=== PATIENT | female | born 1995 | race Two or more races ===

== ENCOUNTER 2024-07-12 08:44 | Inpatient (IN) | payer MEDICAID ==
[~2024-07-12] VITALS: Ht 162.6 cm; Wt 77.6 kg
[2024-07-12 09:37] LABS: PH,URINE DRUG SCREEN 6.5 (5.0-8.0)
[2024-07-12 09:44] LABS: BASOPHILS % (AUTO) 0.7 % (0.0-2.0); HEMATOCRIT 37.9 % (36-46); HEMOGLOBIN 12.9 g/dL (12.0-16.0); LYMPHOCYTES # (AUTO) 2.9 K/uL (1.0-4.8); LYMPHOCYTES % (AUTO) 72.6 % (22.0-44.0); MEAN CORPUSCULAR HEMOGLOBIN 34.5 pg (26.0-34.0); MEAN CORPUSCULAR HGB CONC 34.1 G/dL (31.0-37.0); MEAN CORPUSCULAR VOLUME 101 fL (80-100); MONOCYTES # (AUTO) 0.3 K/uL (0.1-1.0); MONOCYTES % (AUTO) 7.2 % (2.0-9.0); NEUTROPHILS # (AUTO) 0.8 K/uL (1.8-7.7); NEUTROPHILS % (AUTO) 18.5 % (40.0-70.0); PLATELET COUNT (AUTO) 191 K/uL (150-450); RED BLOOD CELL COUNT(AUTO) 3.75 MIL/uL (4.00-5.20); RED CELL DISTRIBUTION WIDTH 14.1 % (11.5-14.5); WHITE BLOOD COUNT (AUTO) 4.1 K/uL (4.5-11.0)
[2024-07-12 09:44] LABS: AMPHET/METH SCREEN,URINE NEGATIVE (NEGATIVE); BARBITURATE SCREEN, URINE NEGATIVE (NEGATIVE); BENZODIAZEPINES SCREEN,URINE POSITIVE (NEGATIVE); CANNABINOID SCREEN,URINE POSITIVE (NEGATIVE); COCAINE SCREEN,URINE NEGATIVE (NEGATIVE); METHADONE SCREEN, URINE NEGATIVE (NEGATIVE); OPIATE SCREEN,URINE NEGATIVE (NEGATIVE); PHENCYCLIDINE SCREEN,URINE NEGATIVE (NEGATIVE)
[2024-07-12 09:49] LABS: ALCOHOL, URINE DRUG SCREEN POSITIVE (NEGATIVE)
[2024-07-12 09:52] LABS: ANION GAP 18 mmol/L (8-16); CALCIUM, TOTAL 8.6 mg/dL (8.8-10.5); CARBON DIOXIDE 28 mmol/L (22-29); CHLORIDE 96 mmol/L (98-107); CREATININE 0.81 mg/dL (0.60-1.30); GLOMERULAR FILTR. RATE CALC > 60 mL/min (>60); GLUCOSE,RANDOM 87 mg/dL (70-110); POTASSIUM 3.5 mmol/L (3.5-5.1); SODIUM SERUM 141 mmol/L (136-145); UREA NITROGEN, BLOOD 6 mg/dL (7-18)
[2024-07-12 10:04] LABS: ALCOHOL, BLOOD (SERUM) 258 mg/dL (0-10)
[2024-07-12 10:15] LABS: RBC MORPHOLOGY COMMENT ABNORMAL RBC MORPH
[2024-07-12] MEDS: ONDANSETRON HCL 4 MG TABLET PO ONE (13:17)
[2024-07-12 13:37] LABS: COVID AG,FIA SOURCE NASAL SWAB
[2024-07-12 13:54] LABS: SARS-COV2 (COVID) ANTIGEN,FIA Negative (Negative)
[2024-07-12 15:47] VITALS: BP 136/74; PULSE 84; RESP 18; TEMP 98.2; O2SAT 98
[2024-07-12] MEDS ORDERED: MAGNESIUM HYDROXIDE SUSPENSION 30 ML UDCUP PO PRN (17:45)
[2024-07-12] MEDS ORDERED: ACETAMINOPHEN 325 MG TABLET PO PRN (17:45)
[2024-07-12] MEDS ORDERED: MAG HYDROX/ALUMINUM HYD/SIMETH ES 30 ML SUSPENSION UDCUP PO PRN (17:45)
[2024-07-12] MEDS ORDERED: BENZOCAINE/MENTHOL LOZENGE PO PRN (17:45)
[2024-07-12] MEDS ORDERED: ONDANSETRON HCL 4 MG TABLET PO PRN (17:45)
[2024-07-12] MEDS ORDERED: IBUPROFEN 600 MG TABLET PO PRN (17:45)
[2024-07-12] MEDS ORDERED: CloNIDine HCL 0.1 MG TABLET PO PRN (17:45)
[2024-07-12] MEDS ORDERED: DOCUSATE SODIUM 100 MG CAPSULE PO PRN (17:45)
[2024-07-12] MEDS ORDERED: OMEPRAZOLE 20 MG CAPSULE PO PRN (17:45)
[2024-07-12] MEDS ORDERED: LOPERAMIDE HCL 2 MG CAPSULE PO PRN (17:45)
[2024-07-12] MEDS ORDERED: ALBUTEROL SULFATE HFA 90 MCG/PUFF 8 GM INHALER IH PRN (17:45)
[2024-07-12] MEDS ORDERED: BACITRACIN 28 GM OINTMENT TP PRN (17:45)
[2024-07-12] MEDS ORDERED: PETROLATUM,WHITE 28 GM JELLY TP PRN (17:45)
[2024-07-12 20:38] VITALS: BP 136/80; PULSE 100; RESP 19; TEMP 97.4; O2SAT 98
[2024-07-12] MEDS: LORazepam 2 MG TABLET PO PRN (20:54)
[2024-07-12] MEDS: ZOLPIDEM TARTRATE 10 MG TABLET PO PRN (20:54)
[2024-07-13] MEDS ORDERED: GABAPENTIN 400 MG CAPSULE PO SCH (09:00)
[2024-07-13] MEDS ORDERED: GABAPENTIN 300 MG CAPSULE PO SCH (09:01)
[2024-07-13] MEDS: FLUoxetine HCL 20 MG CAPSULE PO SCH (09:04)
[2024-07-13] MEDS: GABAPENTIN 300 MG CAPSULE PO SCH (09:04)
[2024-07-13 09:10] VITALS: BP 132/80; PULSE 81; RESP 18; TEMP 98.2; O2SAT 98
[2024-07-13 12:13] LABS: APPEARANCE,URINE CLEAR (CLEAR); COLOR,URINE YELLOW (YELLOW); GLUCOSE, URINE (UA) NEGATIVE (NEGATIVE); KETONES,URINE =>150 mg/dL (NEGATIVE); LEUKOCYTE ESTERASE ,URINE LARGE (NEGATIVE); NITRATE,URINE NEGATIVE (NEGATIVE); OCCULT BLOOD,URINE NEGATIVE (NEGATIVE); PROTEIN,URINE TRACE mg/dL (NEGATIVE); SPECIFIC GRAVITIY, URINE 1.018 (1.003-1.030)
[2024-07-13 12:22] LABS: BILIRUBIN,URINE SMALL (NEGATIVE)
[2024-07-13 13:09] LABS: RBC,URINE 0-2 /HPF (0-2)
[2024-07-13 13:10] LABS: BACTERIA,URINE Moderate /HPF (None Seen); SQUAMOUS EPITHELIAL CELL,UR Moderate /LPF (None Seen)
[2024-07-13] MEDS: NITROFURANTOIN MONOHYD/M-CRYST 100 MG CAPSULE [MACROBID] PO SCH (17:19)
[2024-07-13] MEDS: HALOPERIDOL 5 MG TABLET PO PRN (21:07)
[2024-07-13 21:31] VITALS: BP 130/90; PULSE 89; RESP 18; TEMP 98.1; O2SAT 98
[2024-07-14 10:07] VITALS: BP 125/86; PULSE 79; RESP 18; TEMP 97.9; O2SAT 98
[2024-07-14 21:48] VITALS: BP 151/102; PULSE 90; RESP 18; TEMP 97.7; O2SAT 97
[2024-07-15 09:10] VITALS: BP 132/90; PULSE 91; RESP 19; TEMP 97.7; O2SAT 97
[2024-07-15] MEDS ORDERED: FLUO-418 PO (09:56)
[2024-07-15] MEDS ORDERED: GABA-1181 PO (09:57)
[2024-07-15] MEDS ORDERED: NITR-75 PO (09:59)
== END 2024-07-15 17:55 | disposition home or self-care (01) | DRG 754 ==
LOC: EMS 08:44 → 3EI 14:19
PROVIDERS: ADMIT Psychiatry & Neurology Psychiatry; ATTEND Psychiatry & Neurology Psychiatry
DX: F32.9 Major depressive disorder, single episode, unspecified (principal); E11.9 Type 2 diabetes mellitus without complications; R45.851 Suicidal ideations; R56.9 Unspecified convulsions; Z20.822 Contact with and (suspected) exposure to COVID-19; F10.10 Alcohol abuse, uncomplicated; F41.9 Anxiety disorder, unspecified; F43.10 Post-traumatic stress disorder, unspecified; F12.90 Cannabis use, unspecified, uncomplicated; G47.00 Insomnia, unspecified; K59.00 Constipation, unspecified; Y90.8 Blood alcohol level of 240 mg/100 ml or more; N39.0 Urinary tract infection, site not specified; Z91.51 Personal history of suicidal behavior; Z79.899 Other long term (current) drug therapy
CPT/HCPCS: 80048; 80307; 81001; 85025; 87086; 87186; 99285; G0480; Q0162

== ENCOUNTER 2024-08-04 00:54 | Inpatient (IN) | payer MEDICAID, OTHER ==
[2024-08-04] VITALS (9 sets, daily range): BP systolic 97–136; BP diastolic 59–84; PULSE 69–97; RESP 17–18; TEMP 97.8–98.4; O2SAT 96–99
[~2024-08-04] VITALS: Ht 167.6 cm; Wt 77.2 kg
[~2024-08-04 00:54] MED LIST: FLUO-418 PO; GABA-1181 PO; NITR-75 PO
[2024-08-04 02:43] LABS: COVID AG,FIA SOURCE NASAL SWAB
[2024-08-04 02:45] LABS: EOSINOPHILS % (AUTO) 0.8 % (1.0-6.0); HEMOGLOBIN 12.9 g/dL (12.0-16.0); NEUTROPHILS # (AUTO) 1.1 K/uL (1.8-7.7)
[2024-08-04 02:48] LABS: SARS-COV2 (COVID) ANTIGEN,FIA Negative (Negative)
[2024-08-04 02:49] LABS: PH,URINE DRUG SCREEN 7.5 (5.0-8.0)
[2024-08-04 02:50] LABS: BASOPHILS % (AUTO) 1.3 % (0.0-2.0); LYMPHOCYTES # (AUTO) 3.2 K/uL (1.0-4.8); LYMPHOCYTES % (AUTO) 64.8 % (22.0-44.0); MEAN CORPUSCULAR HGB CONC 33.8 G/dL (31.0-37.0); MEAN CORPUSCULAR VOLUME 103 fL (80-100); MONOCYTES # (AUTO) 0.5 K/uL (0.1-1.0); MONOCYTES % (AUTO) 10.6 % (2.0-9.0); NEUTROPHILS % (AUTO) 22.5 % (40.0-70.0); PLATELET COUNT (AUTO) 361 K/uL (150-450); RED BLOOD CELL COUNT(AUTO) 3.68 MIL/uL (4.00-5.20); RED CELL DISTRIBUTION WIDTH 14.4 % (11.5-14.5)
[2024-08-04 02:54] LABS: METHADONE SCREEN, URINE NEGATIVE (NEGATIVE)
[2024-08-04 02:54] LABS: ANION GAP 11 mmol/L (8-16); CALCIUM, TOTAL 8.3 mg/dL (8.8-10.5); CARBON DIOXIDE 26 mmol/L (22-29); CHLORIDE 106 mmol/L (98-107); GLOMERULAR FILTR. RATE CALC > 60 mL/min (>60); GLUCOSE,RANDOM 96 mg/dL (70-110); POTASSIUM 3.6 mmol/L (3.5-5.1); SODIUM SERUM 143 mmol/L (136-145); UREA NITROGEN, BLOOD 12 mg/dL (7-18)
[2024-08-04 03:00] LABS: ALCOHOL, BLOOD (SERUM) 283 mg/dL (0-10)
[2024-08-04 03:04] LABS: AMPHET/METH SCREEN,URINE NEGATIVE (NEGATIVE); BARBITURATE SCREEN, URINE NEGATIVE (NEGATIVE); BENZODIAZEPINES SCREEN,URINE POSITIVE (NEGATIVE); CANNABINOID SCREEN,URINE POSITIVE (NEGATIVE); COCAINE SCREEN,URINE NEGATIVE (NEGATIVE); OPIATE SCREEN,URINE NEGATIVE (NEGATIVE); PHENCYCLIDINE SCREEN,URINE NEGATIVE (NEGATIVE)
[2024-08-04 03:06] LABS: ALCOHOL, URINE DRUG SCREEN POSITIVE (NEGATIVE)
[2024-08-04] MEDS ORDERED: HALOPERIDOL 5 MG TABLET PO PRN (05:15)
[2024-08-04] MEDS ORDERED: LORazepam 2 MG TABLET PO PRN (05:15)
[2024-08-04 05:17] LABS: ACETAMINOPHEN < 2 mcg/mL (10-30); SALICYLATE 0.9 mg/dL (2.8-20.0)
[2024-08-04 05:32] LABS: APPEARANCE,URINE CLEAR (CLEAR); BILIRUBIN,URINE NEGATIVE (NEGATIVE); COLOR,URINE COLORLESS (YELLOW); GLUCOSE, URINE (UA) NEGATIVE (NEGATIVE); KETONES,URINE NEGATIVE (NEGATIVE); LEUKOCYTE ESTERASE ,URINE MODERATE (NEGATIVE); NITRATE,URINE NEGATIVE (NEGATIVE); OCCULT BLOOD,URINE NEGATIVE (NEGATIVE); PH,URINE 7.5 (5.0-8.0); PROTEIN,URINE NEGATIVE (NEGATIVE); SPECIFIC GRAVITIY, URINE 1.009 (1.003-1.030); UROBILINOGEN,URINE <=1.0 mg/dL (<=1.0)
[2024-08-04 05:38] LABS: BACTERIA,URINE None Seen /HPF (None Seen); RBC,URINE None Seen /HPF (0-2); SQUAMOUS EPITHELIAL CELL,UR Few /LPF (None Seen)
[2024-08-04] MEDS ORDERED: PANT20TA PO (08:05)
[2024-08-04] MEDS: PANTOPRAZOLE SODIUM 40 MG DR TABLET PO SCH (08:38)
[2024-08-04] MEDS ORDERED: PANTOPRAZOLE SODIUM 40 MG DR TABLET PO SCH (18:00)
[2024-08-04] MEDS ORDERED: LOPERAMIDE HCL 2 MG CAPSULE PO PRN (21:15)
[2024-08-04] MEDS ORDERED: PROMETHAZINE HCL 25 MG TABLET PO PRN (21:15)
[2024-08-04] MEDS ORDERED: ACETAMINOPHEN 325 MG TABLET PO PRN (21:15)
[2024-08-04] MEDS ORDERED: DIAZEPAM 10 MG TABLET PO PRN (21:15)
[2024-08-04] MEDS ORDERED: BusPIRone HCL 5 MG TABLET PO PRN (21:15)
[2024-08-04] MEDS ORDERED: QUEtiapine FUMARATE 100 MG TABLET PO PRN (21:15)
[2024-08-04] MEDS ORDERED: HydrOXYzine PAMOATE 50 MG CAPSULE PO PRN (21:15)
[2024-08-04] MEDS ORDERED: MAG HYDROX/ALUMINUM HYD/SIMETH ES 30 ML SUSPENSION UDCUP PO PRN (21:15)
[2024-08-04] MEDS ORDERED: MAGNESIUM HYDROXIDE SUSPENSION 30 ML UDCUP PO PRN (21:15)
[2024-08-04] MEDS ORDERED: GuaiFENesin/D-METHORPHAN [SUGAR-FREE] 200-20MG/10 ML SYRUP UDCUP PO PRN (21:15)
[2024-08-04] MEDS: ZOLPIDEM TARTRATE 10 MG TABLET PO PRN (23:24)
[2024-08-05 01:07] VITALS: BP 103/63; PULSE 72; RESP 18; TEMP 97
[2024-08-05 01:38] VITALS: BP 103/63; PULSE 72; RESP 18; TEMP 97.9; O2SAT 98
[2024-08-05 05:07] VITALS: RESP 17
[2024-08-05] MEDS ORDERED: DIAZEPAM 10 MG TABLET PO PRN (07:00)
[2024-08-05 08:16] VITALS: BP 109/66; PULSE 66; RESP 17; TEMP 98.4; O2SAT 99
[2024-08-05 08:33] LABS: HEMOGLOBIN A1C 4.8 % (3.8-5.6)
[2024-08-05 08:59] LABS: FREE T4 (FREE THYROXINE) 0.66 ng/dL (0.76-1.46); THYROID STIMULATING HORMONE 2.87 uIU/mL (0.36-3.74)
[2024-08-05] MEDS: NALTREXONE HCL 50 MG TABLET PO SCH (09:00)
[2024-08-05] MEDS: DIAZEPAM 10 MG TABLET PO SCH (09:14)
[2024-08-05] MEDS: GABAPENTIN 300 MG CAPSULE PO SCH (09:14)
[2024-08-05] MEDS: THIAMINE 100 MG TABLET PO SCH (09:14)
[2024-08-05] MEDS: FOLIC ACID 1 MG TABLET PO SCH (09:14)
[2024-08-05] MEDS: MULTIVITAMINS WITH MINERALS, THERAPEUTIC TABLET PO SCH (09:15)
[2024-08-05] MEDS: FLUoxetine HCL 20 MG CAPSULE PO SCH (09:16)
[2024-08-05] MEDS: TUBERCULIN, PURIFIED PROTEIN DERIVATIVE 5 TU/0.1 ML SYRINGE ID ONE (15:31)
[2024-08-05 20:22] VITALS: BP 111/75; PULSE 71; RESP 18; TEMP 97.3; O2SAT 99
[2024-08-05] MEDS: MELATONIN 5 MG TABLET PO SCH (21:34)
[2024-08-05] MEDS: TraZODone HCL 50 MG TABLET PO SCH (21:34)
[2024-08-05] MEDS: PRAZOSIN HCL 1 MG CAPSULE PO SCH (21:34)
[2024-08-06] MEDS: POLYETHYLENE GLYCOL 3350 17 GM PACKET PO PRN (06:50)
[2024-08-06 08:26] VITALS: BP 104/71; PULSE 81; RESP 17; TEMP 97.7; O2SAT 100
[2024-08-07] MEDS ORDERED: DIAZEPAM 5 MG TABLET PO PRN (07:00)
[2024-08-07] MEDS ORDERED: DIAZEPAM 5 MG TABLET PO SCH (09:00)
[2024-08-08] MEDS ORDERED: DIAZEPAM 5 MG TABLET PO PRN (07:00)
== END 2024-08-06 19:39 | disposition home or self-care (01) | DRG 885 ==
LOC: EMS 00:54 → B2S 10:47 → EMS 10:47
PROVIDERS: ADMIT Psychiatry & Neurology Psychiatry; ATTEND Psychiatry & Neurology Psychiatry
PROC: GZHZZZZ Group Psychotherapy (ICD-10-PCS; principal; 2024-08-05)
PROC: GZ58ZZZ Individual Psychotherapy, Cognitive-Behavioral (ICD-10-PCS; 2024-08-05)
DX: F33.2 Major depressive disorder, recurrent severe without psychotic features (principal); F10.229 Alcohol dependence with intoxication, unspecified; R45.851 Suicidal ideations; F41.9 Anxiety disorder, unspecified; G47.00 Insomnia, unspecified; E11.9 Type 2 diabetes mellitus without complications; F17.200 Nicotine dependence, unspecified, uncomplicated; F43.10 Post-traumatic stress disorder, unspecified; Z20.822 Contact with and (suspected) exposure to COVID-19; G40.409 Other generalized epilepsy and epileptic syndromes, not intractable, without status epilepticus; J44.9 Chronic obstructive pulmonary disease, unspecified; K59.00 Constipation, unspecified; Z88.5 Allergy status to narcotic agent; T46.5X2A Poisoning by other antihypertensive drugs, intentional self-harm, initial encounter
CPT/HCPCS: 80048; 80061; 80307; 81001; 83036; 84439; 84443; 84703; 85025; 86592; 87081; 99285; G0480; G0481

== ENCOUNTER 2024-08-08 21:58 | Inpatient (IN) | payer OTHER ==
[~2024-08-08] VITALS: Ht 165.1 cm; Wt 79.5 kg
[~2024-08-08 21:58] MED LIST changes: -NITR-75 PO; +PANT20TA PO
[2024-08-08 22:54] LABS: BASOPHILS % (AUTO) 0.4 % (0.0-2.0); EOSINOPHILS % (AUTO) 0.8 % (1.0-6.0); HEMATOCRIT 39.9 % (36-46); HEMOGLOBIN 13.3 g/dL (12.0-16.0); LYMPHOCYTES # (AUTO) 2.8 K/uL (1.0-4.8); LYMPHOCYTES % (AUTO) 34.3 % (22.0-44.0); MEAN CORPUSCULAR HEMOGLOBIN 34.4 pg (26.0-34.0); MEAN CORPUSCULAR HGB CONC 33.3 G/dL (31.0-37.0); MEAN CORPUSCULAR VOLUME 103 fL (80-100); MONOCYTES # (AUTO) 0.4 K/uL (0.1-1.0); MONOCYTES % (AUTO) 4.7 % (2.0-9.0); NEUTROPHILS # (AUTO) 4.9 K/uL (1.8-7.7); NEUTROPHILS % (AUTO) 59.8 % (40.0-70.0); PLATELET COUNT (AUTO) 361 K/uL (150-450); RED BLOOD CELL COUNT(AUTO) 3.86 MIL/uL (4.00-5.20); RED CELL DISTRIBUTION WIDTH 14.1 % (11.5-14.5); WHITE BLOOD COUNT (AUTO) 8.3 K/uL (4.5-11.0)
[2024-08-08 23:04] LABS: RBC MORPHOLOGY COMMENT ABNORMAL RBC MORPH
[2024-08-08 23:05] LABS: ANION GAP 11 mmol/L (8-16); CALCIUM, TOTAL 8.3 mg/dL (8.8-10.5); CARBON DIOXIDE 29 mmol/L (22-29); CHLORIDE 108 mmol/L (98-107); CREATININE 0.65 mg/dL (0.60-1.30); GLOMERULAR FILTR. RATE CALC > 60 mL/min (>60); GLUCOSE,RANDOM 103 mg/dL (70-110); POTASSIUM 3.2 mmol/L (3.5-5.1); SODIUM SERUM 148 mmol/L (136-145); UREA NITROGEN, BLOOD 8 mg/dL (7-18)
[2024-08-08 23:15] LABS: PROTHROMBIN TIME 10.9 SEC (9.4-11.6)
[2024-08-08 23:18] LABS: TROPONIN I-HIGH SENSITIVITY Less Than 4 ng/L (<51)
[2024-08-08 23:22] LABS: B-TYPE NATRIURETIC PEPTIDE 74 pg/mL (0-100)
[2024-08-08 23:28] LABS: ALANINE AMINOTRANSFERASE 44 U/L (12-78); ALBUMIN 3.8 g/dL (3.4-5.0); ALKALINE PHOSPHATASE 78 U/L (46-116); ASPARTATE AMINOTRANSFERASE 38 U/L (15-37); BILIRUBIN,TOTAL 0.4 mg/dL (0.1-1.0); CREATINE KINASE, TOTAL ONLY 95 U/L (26-192); PHOSPHORUS 3.4 mg/dL (2.5-4.9); TOTAL PROTEIN, SERUM 7.1 g/dL (6.4-8.2)
[2024-08-08 23:29] LABS: ACETAMINOPHEN < 2 mcg/mL (10-30); ALCOHOL, BLOOD (SERUM) 305 mg/dL (0-10)
[2024-08-08 23:33] LABS: SALICYLATE 0.8 mg/dL (2.8-20.0)
[2024-08-08 23:40] LABS: COVID AG,FIA SOURCE NASAL SWAB
[2024-08-08] MEDS: POTASSIUM CHLORIDE 20 MEQ ER TABLET PO ONE (23:45)
[2024-08-08 23:54] LABS: SARS-COV2 (COVID) ANTIGEN,FIA Negative (Negative)
[2024-08-09 00:30] LABS: APPEARANCE,URINE CLEAR (CLEAR); BILIRUBIN,URINE NEGATIVE (NEGATIVE); COLOR,URINE COLORLESS (YELLOW); GLUCOSE, URINE (UA) NEGATIVE (NEGATIVE); KETONES,URINE NEGATIVE (NEGATIVE); NITRATE,URINE NEGATIVE (NEGATIVE); OCCULT BLOOD,URINE NEGATIVE (NEGATIVE); PH,URINE 5.5 (5.0-8.0); PH,URINE DRUG SCREEN 5.5 (5.0-8.0); PROTEIN,URINE NEGATIVE (NEGATIVE); SPECIFIC GRAVITIY, URINE 1.007 (1.003-1.030); UROBILINOGEN,URINE <=1.0 mg/dL (<=1.0)
[2024-08-09 00:33] LABS: LEUKOCYTE ESTERASE ,URINE N (NEGATIVE)
[2024-08-09 00:38] LABS: AMPHET/METH SCREEN,URINE NEGATIVE (NEGATIVE); BARBITURATE SCREEN, URINE NEGATIVE (NEGATIVE); BENZODIAZEPINES SCREEN,URINE POSITIVE (NEGATIVE); CANNABINOID SCREEN,URINE POSITIVE (NEGATIVE); COCAINE SCREEN,URINE NEGATIVE (NEGATIVE); METHADONE SCREEN, URINE NEGATIVE (NEGATIVE); OPIATE SCREEN,URINE NEGATIVE (NEGATIVE); PHENCYCLIDINE SCREEN,URINE NEGATIVE (NEGATIVE)
[2024-08-09 00:42] LABS: ALCOHOL, URINE DRUG SCREEN POSITIVE (NEGATIVE)
[2024-08-09] MEDS ORDERED: HALOPERIDOL 5 MG TABLET PO PRN (06:45)
[2024-08-09 06:57] VITALS: O2SAT 96
[2024-08-09 16:47] VITALS: BP 101/73; PULSE 77; RESP 18; TEMP 97.8
[2024-08-09] MEDS: LORazepam 2 MG TABLET PO PRN (16:48)
[2024-08-09 16:50] VITALS: BP 101/73; PULSE 77; RESP 18; TEMP 97.8; O2SAT 96
[2024-08-09 20:12] VITALS: BP 108/70; PULSE 87; RESP 18; TEMP 98.1; O2SAT 99
[2024-08-09] MEDS ORDERED: DOCUSATE SODIUM 100 MG CAPSULE PO PRN (20:45)
[2024-08-09] MEDS ORDERED: ALBUTEROL SULFATE HFA 90 MCG/PUFF 8 GM INHALER IH PRN (20:45)
[2024-08-09] MEDS ORDERED: OMEPRAZOLE 20 MG CAPSULE PO PRN (20:45)
[2024-08-09] MEDS ORDERED: LOPERAMIDE HCL 2 MG CAPSULE PO PRN (20:45)
[2024-08-09] MEDS ORDERED: MAGNESIUM HYDROXIDE SUSPENSION 30 ML UDCUP PO PRN (20:45)
[2024-08-09] MEDS ORDERED: MAG HYDROX/ALUMINUM HYD/SIMETH ES 30 ML SUSPENSION UDCUP PO PRN (20:45)
[2024-08-09] MEDS ORDERED: ONDANSETRON 4 MG TABLET PO PRN (20:45)
[2024-08-09] MEDS ORDERED: IBUPROFEN 600 MG TABLET PO PRN (20:45)
[2024-08-09] MEDS ORDERED: PETROLATUM,WHITE 28 GM JELLY TP PRN (20:45)
[2024-08-09] MEDS ORDERED: BENZOCAINE/MENTHOL LOZENGE PO PRN (20:45)
[2024-08-09] MEDS ORDERED: BACITRACIN 28 GM OINTMENT TP PRN (20:45)
[2024-08-09] MEDS ORDERED: CloNIDine HCL 0.1 MG TABLET PO PRN (20:45)
[2024-08-09] MEDS ORDERED: ACETAMINOPHEN 325 MG TABLET PO PRN (20:45)
[2024-08-09] MEDS: ZOLPIDEM TARTRATE 10 MG TABLET PO PRN (21:26)
[2024-08-10 08:14] VITALS: BP 110/69; PULSE 88; RESP 18; TEMP 98.9; O2SAT 99
[2024-08-10 08:46] LABS: ALANINE AMINOTRANSFERASE 41 U/L (12-78); ALBUMIN 3.3 g/dL (3.4-5.0); ALKALINE PHOSPHATASE 68 U/L (46-116); ANION GAP 10 mmol/L (8-16); ASPARTATE AMINOTRANSFERASE 35 U/L (15-37); BILIRUBIN,TOTAL 0.5 mg/dL (0.1-1.0); CALCIUM, TOTAL 8.4 mg/dL (8.8-10.5); CARBON DIOXIDE 26 mmol/L (22-29); CHLORIDE 101 mmol/L (98-107); CREATININE 0.83 mg/dL (0.60-1.30); GLOMERULAR FILTR. RATE CALC > 60 mL/min (>60); GLUCOSE,RANDOM 94 mg/dL (70-110); POTASSIUM 3.8 mmol/L (3.5-5.1); SODIUM SERUM 137 mmol/L (136-145); TOTAL PROTEIN, SERUM 6.2 g/dL (6.4-8.2); UREA NITROGEN, BLOOD 7 mg/dL (7-18)
[2024-08-10] MEDS: GABAPENTIN 300 MG CAPSULE PO SCH (08:58)
[2024-08-10 20:37] VITALS: BP 110/72; PULSE 89; RESP 17; TEMP 97.8; O2SAT 98
[2024-08-11 08:25] VITALS: BP 118/83; PULSE 81; RESP 18; TEMP 97.6; O2SAT 97
[2024-08-11] MEDS ORDERED: ETHYL ALCOHOL 62% ANTISEPTIC NASAL SANITIZER 0.6 ML AMPUL NASAL SCH (21:00)
[2024-08-11] MEDS ORDERED: CHLORHEXIDINE GLUCONATE 2% TOWELETTE [2'S/6'S] TP SCH (22:00)
== END 2024-08-11 13:00 | disposition home or self-care (01) | DRG 881 ==
LOC: EMS 21:58 → EDBEDREQ 08-09 04:59 → B2S 08-09 07:36
PROVIDERS: ADMIT Psychiatry & Neurology Psychiatry; ATTEND Psychiatry & Neurology Psychiatry
DX: F32.9 Major depressive disorder, single episode, unspecified (principal); F41.9 Anxiety disorder, unspecified; F43.10 Post-traumatic stress disorder, unspecified; G47.00 Insomnia, unspecified; Z20.822 Contact with and (suspected) exposure to COVID-19; R56.9 Unspecified convulsions; K59.00 Constipation, unspecified; T50.991A Poisoning by other drugs, medicaments and biological substances, accidental (unintentional), initial encounter; Z79.899 Other long term (current) drug therapy; Z87.891 Personal history of nicotine dependence; Y92.89 Other specified places as the place of occurrence of the external cause
CPT/HCPCS: 80053; 80307; 81003; 82550; 83735; 83880; 84100; 84484; 84703; 85025; 85610; 85730; 87081; 93005; 99285; G0480; G0481